=== PATIENT | female | born 2005 | race Caucasian/White ===

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

== ENCOUNTER 2023-12-15 10:29 | Emergency (ER) | payer BC, MEDICAID ==
--- NOTE | 2023-12-15 12:20 | ED Physician Documentation ---
PD HPI HEADACHE - Stated complaint Stated Complaint: MIGRAINE - Chief complaint Chief Complaint: Neuro - History obtained from History obtained from: Patient - History of Present Illness Timing - onset: How many days ago (3) Timing - onset during: Light activity Timing - duration: Days (3) Timing - details: Gradual onset, Still present Worst headache ever?: No: Worst headache ever? (similar to prior but more prolonged.) Location: Front, Right Quality: Throbbing, Aching Associated symptoms: Nausea, Vision changes (light sensitive, and some occasional wavy lines.). No: Fever, Stiff neck, Vomiting, Weakness, Numbness Contributing factors: No: Recent illness Similar symptoms before: No diagnosis (has had similar about every 1-2 weeks for last several months. 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 : Chronic bladder infection HEENT: None Psych: Depression, Anxiety, ADD/ADHD Musculoskeletal: None Derm: None - Past Surgical History Past Surgical History: No - Present Medications Home Medications: Ambulatory Orders Medication Instructions Recorded Confirmed Ondansetron Odt [Zofran] 4 mg TL Q6H PRN #10 tablet 12/15/23 Rizatriptan Benzoate [Maxalt] 10 mg PO Q6H PRN #6 tab 12/15/23 - Allergies Allergies/Adverse Reactions: Allergies Allergy/AdvReac Type Severity Reaction Status Date / Time No Known Drug Allergies Allergy Verified 12/15/23 10:45 - Social History Does the pt smoke?: No Smoking Status: Never smoker Does the pt drink ETOH?: No Does the pt have substance abuse?: No - Immunizations Immunizations are current?: Yes - POLST Patient has POLST: No PD ED PE NORMAL - Vitals Vital signs reviewed: Yes - General General: Alert and oriented X 3, No acute distress, Well developed/nourished - HEENT HEENT: PERRL (some light sensitive), EOMI - Neck Neck: Supple, no meningeal sign, No adenopathy - Cardiac Cardiac: RRR, No murmur - Respiratory Respiratory: Clear bilaterally - Neuro Neuro: Alert and oriented X 3, chemical dependency nurse 2-12 intact, No motor deficit, No sensory deficit, Normal speech Results - Vitals Vitals: Oxygen O2 Source Room air PD Medical Decision Making - ED course Complexity details: re-evaluated patient (states a burning feeling in face and head briefly but was dissipating. No chest pain. Headache starting to decrease but not resolved. Wanting to head home.), considered differential (sounds like classic migraine MORGAN. Usually uses Ibuprofen or aspirin at home for them. This one still occurring. No red flag symptoms/findings. Can treat as migraine. Try Imitrex and Toradol with Zofran. ), d/w patient Departure - Departure Disposition: Home, Self Care Clinical Impression: Migraine headache Qualifiers: Migraine type: unspecified Status migrainosus presence: without status migrainosus Intractability: not intractable Qualified Code(s): G43.909 - Migraine, unspecified, not intractable, without status migrainosus Condition: Stable Record reviewed to determine appropriate education?: Yes Instructions: ED Headache Migraine Prescriptions: Rizatriptan Benzoate [Maxalt] 10 mg PO Q6H PRN #6 tab PRN Reason: Migraine Ondansetron Odt [Zofran] 4 mg TL Q6H PRN #10 tablet PRN Reason: Nausea / Vomiting Comments: For subsequent migraines, you can try the ibuprofen or aspirin or Tylenol as you had been. If it is not as effective, you can go with one of the migraine specific type medicines such as rizatriptan. Taken in a tablet form is much less likely to give the burning feeling like you had with the injection from the sumatriptan. Combine it with ondansetron for nausea which can also help with migraine in addition. I sent these prescriptions to your preferred pharmacy. Depending upon the frequency of subsequent migraines and the effectiveness of these medicines, it could be possible to need to go on a daily medicine to reduce the frequency of them. That tends to be more when there every few days or weekly. Follow-up with your primary care. Forms: PCP List Discharge Date/Time: 12/15/23 13:43
[2023-12-15] MEDS: PROMETHAZINE 25 MG/1 ML VIAL IM STA (13:20)
[2023-12-15] MEDS: SUMAtriptan 6 MG/0.5 ML VIAL SUBQ STA (13:20)
[2023-12-15] MEDS: IBUPROFEN 600 MG TABLET PO STA (13:20)
[2023-12-15 13:54] VITALS: BP 122/80; O2SAT 98
== END 2023-12-15 13:43 | disposition home or self-care (01) ==
LOC: ED 10:29
DX: G43.909 Migraine, unspecified, not intractable, without status migrainosus (principal)
CPT/HCPCS: 96372; 99283; 99284